=== PATIENT | female | born 1950 | race Caucasian/White ===

== ENCOUNTER → 2016-05-16 | Outpatient (CLI) | payer OTHER ==
[~2016-05-16] MED LIST: ABILIFY10 MG PO; ABILIFY5 MG PO; BENZTROPINE ME0.5 MG PO; COMBIVENT RESPIM4 GM IH; DIGOXIN250 MCG/1 PO; LOPRESSOR25 MG PO; METHOTREXATE2.5 MG PO; MULTIPLE VITAM1 EACH PO; NICODERM CQ1 EAC2 TD; NICORETTE4 MG BC; OMEPRAZOLE20 MG PO; OXYCODONE HCL5 MG PO; PREDNISONE20 MG PO; PREDNISONE5 MG PO; PRILOSEC20 MG PO; PRISTIQ100 MG PO; PRISTIQ50 MG PO; XANAX2 MG PO
== END | disposition home or self-care (01) ==
LOC: RES 10:00
DX: J44.9 Chronic obstructive pulmonary disease, unspecified (principal)
CPT/HCPCS: 94060; 94726; 94729

== ENCOUNTER → 2016-12-19 | Outpatient (CLI) | payer OTHER ==
[~2016-12-19] VITALS: Ht 167.6 cm; Wt 59.0 kg
[~2016-12-19] MED LIST changes: +ALLERGY RELIEF180 MG PO; +RASUVO 2020 MG/0.4 SC; +SPIRIVA RESPIMAT4 GM IH; +SYNTHROID75 MCG PO; +XANAX1 MG PO; +ZANTAC150 MG PO
== END | disposition home or self-care (01) ==
LOC: AMB 11-11 13:30
PROC: 0DBK8ZX Excision of Ascending Colon, Via Natural or Artificial Opening Endoscopic, Diagnostic (ICD-10-PCS; principal; 2016-12-19)
DX: Z12.11 Encounter for screening for malignant neoplasm of colon (principal); D12.2 Benign neoplasm of ascending colon; C34.91 Malignant neoplasm of unspecified part of right bronchus or lung; K21.9 Gastro-esophageal reflux disease without esophagitis; M06.9 Rheumatoid arthritis, unspecified; M81.0 Age-related osteoporosis without current pathological fracture; Z79.52 Long term (current) use of systemic steroids; Z79.899 Other long term (current) drug therapy; J44.9 Chronic obstructive pulmonary disease, unspecified; F41.8 Other specified anxiety disorders; F33.2 Major depressive disorder, recurrent severe without psychotic features; E89.0 Postprocedural hypothyroidism; E53.8 Deficiency of other specified B group vitamins; E55.9 Vitamin D deficiency, unspecified; F17.200 Nicotine dependence, unspecified, uncomplicated
CPT/HCPCS: 88305; J2250; J3010

== ENCOUNTER 2017-03-04 03:38 | Emergency (ER) | payer OTHER ==
[~2017-03-04] VITALS: Ht 165.1 cm; Wt 56.9 kg
[2017-03-04 03:59] LABS: HEMATOCRIT 38.7 % (36.0-46.0); MCH 33.6 PG (29.0-34.0); MCHC 34.1 G/DL (30.0-36.0); MCV 98.5 FL (83-99); MEAN PLAT.VOLUME 9.5 uM^3 (9.5-12.4); PLATELET COUNT 314 K/uL (156-360); RBC DIS.WIDTH-SD 46.1 % (39-53); RED BLOOD COUNT 3.93 M/uL (3.80-5.20); WHITE BLOOD COUNT 12.5 K/uL (4.1-10.2)
[2017-03-04 04:08] LABS: CHLORIDE 104 mEq/L (99-109); POTASSIUM 3.7 mEq/L (3.7-5.4); SODIUM 139 mEq/L (136-147)
[2017-03-04 04:10] LABS: GLUCOSE 161 mg/dL (70-99)
[2017-03-04 04:11] LABS: ANION GAP 13 MEQ/L (2-14)
[2017-03-04 04:12] LABS: TOTAL BILIRUBIN 0.7 mg/dL (0.0-1.0)
[2017-03-04 04:13] LABS: ALKALINE PHOSPHATASE 106 IU/L (3-129)
[2017-03-04 04:14] LABS: GFR ESTIMATE (CALCULATED) > 59 mL/min/
[2017-03-04 04:15] LABS: UREA NITROGEN (BUN) 11 mg/dL (9-23)
[2017-03-04 04:17] LABS: LIPASE 10 U/L (1.0-51.0)
[2017-03-04] MEDS ORDERED: INDOCIN50 MG PO (07:46)
[2017-03-04] MEDS ORDERED: CARAFATE1 GM PO (07:46)
[2017-03-04 07:55] VITALS: BP 1145/82
== END 2017-03-04 07:59 | disposition home or self-care (01) ==
LOC: EME 03:38
DX: M25.511 Pain in right shoulder (principal); R11.2 Nausea with vomiting, unspecified; R19.7 Diarrhea, unspecified; M06.9 Rheumatoid arthritis, unspecified; K21.9 Gastro-esophageal reflux disease without esophagitis; M81.0 Age-related osteoporosis without current pathological fracture; F41.9 Anxiety disorder, unspecified; F32.9 Major depressive disorder, single episode, unspecified; F17.200 Nicotine dependence, unspecified, uncomplicated; Z85.9 Personal history of malignant neoplasm, unspecified
CPT/HCPCS: 80053; 81003; 83690; 85027; 99281; 99284